=== PATIENT | female | born 1965 | race Caucasian/White ===

== ENCOUNTER 2016-05-29 15:37 | Emergency (ER) | payer OTHER ==
[2016-05-29 15:50] VITALS: BP 100/59
[2016-05-29] MEDS ORDERED: Ketorolac INJ* 60 MG/2 ML VIAL IM ONE (15:58)
--- NOTE | 2016-05-29 16:06 | UC ---
Abdominal Pain Female HPI - HPI Summary HPI Summary: gradual onset of severe abdominal pain. STarted at about 10am, felt like a stabbing pain in right mid-abd to RLQ. Tried to go to [facility], couldn't bear the pain. Returned home. Vomited once, 3 soft stools. Nothing relieved the pain. The pain waxes and wanes, seems most pronounced in RLQ but also epigastric area. Can't walk upright, can't straighten out, going over bumps in car caused pain. No fever. No history of similar pain. No abd surgeries, no ulcers, no colitis. No trauma - History of Current Complaint Chief Complaint: UCAbdominalPain Stated Complaint: SEVERE ABDOMINAL PAIN Time Seen by Provider: 05/29/16 15:45 Hx Obtained From: Patient, Family/Mortarman - Onset/Duration: Gradual Onset, Lasting Hours - 6 Timing: Constant - waxes and wanes, "seems more tolerable now than earlier" but she is writhing around on stretcher in pain now. Severity Currently: Severe Location: Discrete At: RLQ, Epigastric, Other - right mid Radiates: No Character: Aching, Colicy, Cramping, Sharp Aggravating Factor(s): Movement - but present at rest as well Alleviating Factor(s): Nothing Associated Signs and Symptoms: Positive: Diaphoresis, Decreased Appetite, Vomiting - once, Diarrhea - two or three soft stools, not diarrhea. Negative: Fever, Cough, Chest Pain, Dizzy, Constipation, Blood in Stool, Urinary Symptoms , Vaginal Bleeding, Vaginal Discharge, Nausea - Risk Factors Ectopic Risk Factor: Negative Ovarian Torsion Risk Factor: Ovarian Cysts/Tumors - history of ovarian cysts. Last menstrual cycle December Allergies/Adverse Reactions: Allergies Allergy/AdvReac Type Severity Reaction Status Date / Time No Known Allergies Allergy Verified 05/29/16 15:50 Home Medications: Home Medications NK [No Home Medications Reported] 05/29/16 [History Confirmed 05/29/16] PMH/Surg Hx/FS Hx/Imm Hx Previously Healthy: Yes Endocrine History Of: Denies: Diabetes Cardiovascular History Of: Denies: Hypertension, Pacemaker/ICD Respiratory History Of: Denies: Asthma GI/ History Of: Denies: Renal Disease - Surgical History Surgical History: Yes Surgery Procedure, Year, and Place: 2011 laminectomy [facility] - Family History Known Family History: Positive: Hypertension - Social History Occupation: Employed Full-time Lives: With Family Alcohol Use: Occasionally Substance Use Type: None Smoking Status (MU): Never Smoked Tobacco - Immunization History Most Recent Influenza Vaccination: 5428-1312 Review of Systems Constitutional: Negative Skin: Negative Eyes: Negative ENT: Negative Respiratory: Negative Cardiovascular: Negative Gastrointestinal: Abdominal Pain, Vomiting Genitourinary: Negative Motor: Negative Neurovascular: Negative Musculoskeletal: Negative Neurological: Negative Psychological: Negative All Other Systems Reviewed And Are Negative: Yes Physical Exam Triage Information Reviewed: Yes Appearance: No Pain Distress, Well-Nourished, Pain Distress - pillow over head, eyes closed, writhing on bed, looks very uncomfortable Vital Signs: Initial Vital Signs Temp 98.0 F 05/29/16 15:45 Pulse 65 05/29/16 15:45 Resp 17 05/29/16 15:45 BP 100/59 05/29/16 15:45 Pulse Ox 100 05/29/16 15:45 Vital Signs Reviewed: Yes Eye Exam: Normal Neck exam: Normal Respiratory Exam: Normal Cardiovascular Exam: Normal Abdomen Description: Positive: No Organomegaly, Guarding, McBurney's Point Tenderness, Peritoneal Signs - marked tenderness on palpation of epigastric and right mid abdomen. Rebound and guarding. Diminished BS. Negative: CVA Tenderness (R), CVA Tenderness (L), Distended, Hernia @, Hepatomegaly, Pulsatile Mass, Splenomegaly Bowel Sounds: Positive: Hypoactive Musculoskeletal Exam: Normal Neurological Exam: Normal Neurological: Positive: Alert, Muscle Tone Normal Psychological Exam: Normal Abd Pain Female Course/Dx - Course Course Of Treatment: needs further evaluation in ER - Differential Dx/Diagnosis Differential Diagnosis: Abdominal Aortic Aneurysm, Appendicitis, Bowel Obstruction, Diverticulitis, Ectopic , Pelvic Inflammatory Disease, Renal Colic Provider Diagnoses: abdominal pain - Physician Notification/Consults Discussed Patient Care With: MARIAELENA Irizarry at [facility] Instructed by Provider To: Will See In ED Discharge - Discharge Plan Condition: Stable Disposition: TRANS HIGHER LVL OF CARE FAC Referrals: Ling Early MD [Primary Care Provider] -
== END 2016-05-29 16:10 | disposition short-term general hospital (02) ==
LOC: UCCORT 15:37
DX: R10.31 Right lower quadrant pain (principal); R10.13 Epigastric pain
CPT/HCPCS: 96372; 99212; G0463; J1885

== ENCOUNTER 2020-08-27 | Observation (INO) ==
[2020-08-27] MEDS ORDERED: Ondansetron 4 mg VIAL 2 MG/ML 2 ml VIAL IV ONE (00:26)
[2020-08-27] MEDS ORDERED: Morphine 4 MG/ML VIAL (1 ml) IV PRN (00:26)
[2020-08-27] MEDS ORDERED: Morphine 4 MG/ML VIAL (1 ml) IV ONE (00:26)
[2020-08-27] MEDS: NS 0.9% 1000 ml BAG 2,000 ML IV ONE ×2 (00:45→00:53)
[2020-08-27 01:18] LABS: ABS Lymphocytes 0.7 10^3/ul (1.0-4.8); ABS Monocytes 0.4 10^3/ul (0-0.8); ABS Neutrophils 7.6 10^3/ul (1.5-7.7); Eosinophil % 0.4 %; Hematocrit 41 % (35-47); Lymphocyte % 7.9 %; Mean Corpuscular HGB Conc 34 g/dL (31-36); Mean Corpuscular Hemoglobin 31 pg (27-31); Mean Corpuscular Volume 89 fL (80-97); Mean Platelet Volume 8.1 fL (7.4-10.4); Platelet Count 309 10^3/uL (150-450); Red Blood Count 4.59 10^6 /uL (3.70-4.87); Red Cell Distribution Width 12 % (10-15); White Blood Count 8.8 10^3/uL (3.5-10.8)
[2020-08-27 01:25] LABS: Albumin 4.7 g/dL (3.2-5.2); Albumin/Globulin Ratio 1.5 (1-3); BUN/Creatinine Ratio 9.9 (8-20); EGFR Non-African American 85.2 (>60); Globulin 3.1 g/dL (2-4); Potassium 3.6 mmol/L (3.5-5.0); Total Bilirubin 0.5 mg/dL (0.2-1.0); Total Protein 7.8 g/dL (6.4-8.9)
[2020-08-27 02:28] LABS: Urine Appearance Clear; Urine Bilirubin Negative (Negative); Urine Blood Negative (Negative); Urine Color Straw; Urine Glucose Negative (Negative); Urine Ketones Negative (Negative); Urine Nitrite Negative (Negative); Urine Protein Negative (Negative); Urine Specific Gravity 1.002 (1.002-1.030); Urine Urobilinogen Negative (Negative)
[2020-08-27 02:30] LABS: Urine Bacteria 1+ (Absent); Urine Red Blood Cell Trace(0-2/hpf) (Absent); Urine Squamous Epithelial Cell Present (Absent); Urine White Blood Cell Trace(0-5/hpf) (Absent)
[2020-08-27] MEDS ORDERED: Iohexol 300 (CONTRAST) 10 ML SDV IV ONE (02:42)
[2020-08-27] MEDS ORDERED: Ondansetron 4 mg VIAL 2 MG/ML 2 ml VIAL IV PRN (04:53)
[2020-08-27] MEDS ORDERED: NS 0.9% 1000 ml BAG 1,000 ML IV SCH (05:00)
[2020-08-27] MEDS: Pantoprazole VIAL 40 MG VIAL IV SCH (07:07)
[2020-08-27] MEDS: NS 0.9% 1000 ml BAG 1,000 ML IV SCH (16:17)
[2020-08-28] MEDS: NS 0.9% 1000 ml BAG 1,000 ML IV SCH (02:36)
[2020-08-28 06:43] LABS: ABS Eosinophils 0.1 10^3/ul (0-0.6); ABS Lymphocytes 1.1 10^3/ul (1.0-4.8); ABS Monocytes 0.6 10^3/ul (0-0.8); ABS Neutrophils 3.3 10^3/ul (1.5-7.7); Eosinophil % 1.8 %; Hematocrit 34 % (35-47); Hemoglobin 11.3 g/dL (12.0-16.0); Mean Corpuscular HGB Conc 33 g/dL (31-36); Mean Corpuscular Hemoglobin 30 pg (27-31); Mean Corpuscular Volume 92 fL (80-97); Platelet Count 226 10^3/uL (150-450); Red Blood Count 3.73 10^6 /uL (3.70-4.87); Red Cell Distribution Width 12 % (10-15); White Blood Count 5.2 10^3/uL (3.5-10.8)
[2020-08-28 06:46] LABS: BUN/Creatinine Ratio 15.3 (8-20); Calcium 8.4 mg/dL (8.6-10.3); EGFR African American 127.6 (>60); EGFR Non-African American 105.4 (>60); Magnesium 1.9 mg/dL (1.9-2.7); Potassium 3.6 mmol/L (3.5-5.0)
[2020-08-28] MEDS ORDERED: NS 0.9% 1000 ml BAG 1,000 ML IV SCH (08:11)
[2020-08-28] MEDS: Pantoprazole VIAL 40 MG VIAL IV SCH (08:20)
[2020-08-28 11:38] VITALS: BP 103/57
== END 2020-08-28 15:10 | disposition home or self-care (01) ==
LOC: SSU → ED → SSU 05:55
PROVIDERS: ADMIT Internal Medicine; ATTEND Internal Medicine